=== PATIENT | female | born 1950 | race Two or more races ===

== ENCOUNTER → 2022-12-05 | Outpatient (CLI) | payer MEDICARE, BC ==
[~2022-12-05] MED LIST: NIFE-33 PO
== END | disposition home or self-care (01) ==
LOC: CARD 11:26
PROVIDERS: ATTEND Internal Medicine
DX: I34.0 Nonrheumatic mitral (valve) insufficiency (principal); I11.9 Hypertensive heart disease without heart failure; R06.02 Shortness of breath
CPT/HCPCS: 93306